=== PATIENT | female | born 1955 | race Caucasian/White ===

== ENCOUNTER 2021-03-13 10:49 | Emergency (ER) | payer OTHER, MEDICARE, SELFPAY ==
[~2021-03-13] VITALS: Ht 167.6 cm; Wt 77.1 kg
[~2021-03-13 10:49] MED LIST: LEVO88TA2 PO
--- NOTE | 2021-03-13 11:00 | NUR ---
Patient to TENT 1 to gown for evaluation. Side rails up.
[2021-03-13 11:04] VITALS: BP_SYST 106
--- NOTE | 2021-03-13 11:10 | NUR ---
PT REFERRED BY HER PMD FOR MONOCLONAL ANTIBODIES. PT TESTED COVID + ON 03/03/21.
--- NOTE | 2021-03-13 11:15 | NUR ---
NEMESIO Loyd at bedside examining patient.
--- NOTE | 2021-03-13 11:30 | NUR ---
RAPID COVID SWAB COLLECTED AND SENT TO THE LAB
[2021-03-13] MEDS ORDERED: CASIRIVIMAB 600 MG, IMDEVIMAB 600 MG in NS 250 ML IV ONE (12:00)
--- NOTE | 2021-03-13 12:30 | NUR ---
consent for Regenron signed and taken to the pharmacy.
--- NOTE | 2021-03-13 14:15 | NUR ---
REGENERON STARTED AT THIS TIME
--- NOTE | 2021-03-13 15:20 | NUR ---
PT TOLERATED MEDICATION WELL
[2021-03-13 16:31] VITALS: BP_SYST 114
--- NOTE | 2021-03-13 16:32 | NUR ---
Patient given written and verbal discharge instructions and verbalizes understanding. ER MD discussed with patient the results and treatment provided. Patient in stable condition. ID arm band removed. Patient educated on pain management and to follow up with PMD. Pain ScalE 0/10 . Opportunity for questions provided and answered. Medication side effect fact sheet provided.
== END 2021-03-13 16:32 | disposition home or self-care (01) ==
LOC: SED 10:49
DX: U07.1 COVID-19 (principal); Z79.899 Other long term (current) drug therapy
CPT/HCPCS: 36415; 71045; 87426; 99285; J7050; M0243; Q0243